=== PATIENT | female | born 1970 | race Caucasian/White ===

== ENCOUNTER 2017-04-23 17:03 | Emergency (ER) | payer OTHER ==
[~2017-04-23] VITALS: Ht 160 cm; Wt 78.0 kg
[~2017-04-23 17:03] MED LIST: LISINOPRIL10 MG PO; TEGRETOL200 MG PO; ZOVIRAX200 MG PO
--- OUTSIDE RECORDS SUMMARY | 2017-04-23 17:06 | XMS REPORT ---
[facility] Address Unknown Phone Unavailable Care Team Providers Care Statistician Applied Name Role Phone UNKNOWN, REFFERING PP Unavailable EYAL MENJIVAR Unavailable Unavailable ROOT, RAND Unavailable Unavailable NRIAGU, ALBERTO Unavailable Unavailable Problems This patient has no known problems. Allergies, Adverse Reactions, Alerts This patient has no known allergies or adverse reactions. Medications This patient has no known medications. Encounters Start Date/Time End Date/Time Encounter Type Admission Type Attending [facility] Care Department Encounter ID 2016-10-22 08:56:25 Inpatient [facility] [id number] 2016-10-20 16:18:52 Inpatient [facility] [id number] 2017-01-09 07:15:00 2017-01-09 07:15:00 Emergency [facility] [id number] 2016-11-10 00:00:00 2016-11-10 00:00:00 Outpatient [facility] [id number] 2016-10-23 13:18:27 2016-10-23 00:00:00 Inpatient [facility] [id number] 2016-10-22 00:10:05 2016-10-22 00:00:00 Inpatient [facility] [id number] 2016-10-21 00:04:31 2016-10-21 00:00:00 Inpatient [facility] [id number] 2016-10-20 02:11:00 2016-10-20 00:00:00 Inpatient [facility] [id number] 2016-10-19 15:50:32 2016-10-19 15:50:32 Emergency [facility] [id number] 2016-10-19 15:37:29 2016-10-19 15:37:29 Emergency [facility] [id number] 2016-10-19 15:24:23 2016-10-19 15:24:23 Emergency [facility] [id number] 2016-10-19 14:17:16 2016-10-19 14:17:16 Inpatient [facility] [id number] 2016-10-19 22:24:38 2016-10-19 00:00:00 Inpatient [facility] [id number] 2016-09-14 00:38:48 2016-09-14 00:38:48 Emergency [facility] [id number] 2016-09-11 06:59:14 2016-09-11 06:59:14 Emergency [facility] [id number] 2016-09-10 16:35:00 2016-09-10 16:35:00 Emergency [facility] [id number] Results Test Description Test Time Test Comments Text Results Atomic Results Result Comments [id number] 2016-12-22 20:28:00 Amphetamine (test code=AMPH) POSITIVE Negative For diagnostic purposes only , positive results should always be assessedin conjunctionwith the patient's medical history,clinical examination and otherfindings.To fulfill legal requirements, a more specific alternate chemical methodmust be used inorder to obtain a Confirmed analytical result. GC/MS is the preferred confirmatory method. Barbiturates (test code=SHANNON) Negative Negative Benzodiazepine (test code=PHILLIP) Negative Negative Cocaine (test code=COCA) Negative Negative Opiates (test code=OPIA) Negative Negative PCP (test code=PCP) Negative Negative THC (test code=THC) Negative Negative Urinalysis [id number] 20:06:00* Test Item Value Reference Range Comments Color (test code=COLOR) Straw Yellow,Straw,Pl yellow Clarity (test code=CLAR) Clear Clear Specific [place] (test code=SPGR) 1.004 1.001-1.035 pH (test code=PH) 5.0 5.0-9.0 Ketone (test code=KET) Negative mg/dL Negative Glucose (test code=GLUCUR) Negative mg/dL Negative Protein (test code=PROT) Negative mg/dL Negative Bilirubin (test code=BILI) Negative mg/dL Negative Occult Blood (test code=UDOB) Negative Negative Urobilinogen (test code=UROB) 0.2 mg/dL 0.2-1.0 Nitrite (test code=NIT) Negative Negative Leuk Esterase (test code=LEUK) Negative Negative Micros Exam (test code=MEXAM) Not indicated Partial Thromboplastin [id number] 18:29:00* Test Item Value Reference Range Comments aPTT (test code=PTT) 30.70 seconds 24.39-37.25 Prothrombin [id number] 18:29:00* Test Item Value Reference Range Comments PT (test code=PT) 11.50 seconds 9.78-13.35 INR (test code=INR) 1.02 Ratio 0.6-1.2 Comprehensive Metabolic [id number] 18:26:00* Test Item Value Reference Range Comments Sodium (test code=NA) 137 mmol/L 135-145 Potassium (test code=K) 3.9 mmol/L 3.5-5.1 Chloride (test code=CL) 100 mmol/L 98-105 Carbon Dioxide (test code=CO2) 27 mmol/L 22-29 Glucose (test code=GLU) 75 mg/dL 70-115 Blood Urea Nitrogen (test code=BUN) 8 mg/dL 6-20 Creatinine (test code=CREAT) 0.9 mg/dL 0.5-0.9 Calcium (test code=CA) 9.7 mg/dL 8.3-10.5 Prot Total (test code=TP) 7.2 g/dL 6.4-8.3 Albumin (test code=ALB) 4.6 g/dL 3.5-5.2 A/G Ratio (test code=AGRATIO) 1.8 Ratio Globulin (test code=GLOB) 2.6 2.9-3.1 Bili Total (test code=TBIL) 0.6 mg/dL 0.1-0.9 Alk Phos (test code=APHOS) 71 U/L 35-104 AST (test code=AST) 12 U/L 1-32 ALT (test code=ALT) 10 U/L 1-33 BUN/Creatinine Ratio (test code=BCRATIO) 8.9 Anion Gap (test code=AGAP) 10 mmol/L 7-16 Estimated GFR (test code=GFR) >60 mL/min/1.73m2 eGFR (estimated Glomerular Filtration Rate) is an estimated value,calculated from the patient's serum creatinine using the MDRD equation.It is NOT the patient's actual GFR. The eGFR provides a more clinicallyuseful measure of kidney disease than serum creatinine alone.This calculation takes sex and race into account, if the informationis provided. If the race is not provided, and the patient isAfrican- Citizen Of [place], multiply by 1.212. If sex is not provided, and thepatient is female, multiply by 0.742. Results for patients <18 years ofage have not been validated by the MDRD study and should be interpretedwith caution.eGFR Result Interpretation:eGFR > or=60 is in the Normal RangeeGFR < 60 may mean kidney diseaseeGFR < 15 may mean kidney failureRanges recommended by the National Kidney Foundation,http://nkdep.nih.gov CBC with [id number] 18:07:00* Test Item Value Reference Range Comments WBC (test code=WBC) 6.1 K/cumm 4.4-10.5 RBC (test code=RBC) 4.11 M/cumm 3.75-5.20 Hemoglobin (test code=HGB) 12.5 gm/dL 12.2-14.8 Hematocrit (test code=HCT) 38.4 % 36.5-44.4 MCV (test code=MCV) 93.3 fL 80-100 MCH (test code=MCH) 30.4 pg 27.0-32.5 MCHC (test code=MCHC) 32.5 g/dL 32.0-37.5 RDW (test code=RDW) 12.8 % 11.5-14.5 Platelet Count (test code=PLTCT) 285 K/cumm 140-440 MPV (test code=MPV) 7.3 fL Diff Method (test code=DIFFM) Auto Neutrophil (test code=NEUT) 57.7 % 36-70 Lymphocyte (test code=LYMPH) 33.1 % 12-44 Monocyte (test code=MONO) 7.6 % 0-11 Eosinophil (test code=EOS) 1.5 % 0-7 Basophil (test code=BASO) 0.1 % 0-2 Neutro Abs (test code=ANEUT) 3.5 K/cumm 1.6-7.4 Lymph Abs (test code=ALYMPH) 2.0 K/cumm 0.5-4.6 [place] Abs (test code=AMONO) 0.5 K/cumm 0.0-1.2 Eos Abs (test code=AEOS) 0.09 K/cumm 0.00-0.74 Baso Abs (test code=ABASO) 0.0 K/cumm 0.00-0.21 XR CHEST 1 [id number] 17:14:51CHEST 1 VIEWCLINICAL INFORMATION: DyspneaCOMPARISON: September 10, 2016FINDINGS:The lungs are well-expanded and clear. No airspace consolidation isseen. No pneumothorax or pleural effusion is present. The cardiacsilhouette is normal in size. The bones are grossly intact.IMPRESSION:No acute cardiopulmonary finding.LOCATION: R16CT HEAD OR BRAIN WO [id number] 17:10:16CT SCAN OF THE HEAD WITHOUT CONTRASTLocation : [id number] HISTORY: Altered mental statusTECHNIQUE: Helical CT was performed from the skull base to the vertexwithout IV contrast using 5mm slice thicknesses. Coronal and sagittalimages were reconstructed. Exam was performed on an up-to-date helicalCT scanner. Automatic exposure control and radiation dose reductiontechniques were utilized. Exam was performed within 24 hours of thepatient's arrival to the facility. Exam performed without IV contrasthas limited sensitivity for detection of mass or inflammatory change.DLP: 955 mGy *cmFINDINGS:The visualized sinuses are clear. The visualized bony structures arenormal. There is no evidence of mass, mass effect, fluid collection, hemorrhage, or evolving infarction. There is no evidence of epidural,subdural, or intraparenchymal hematoma. There is mild patchy hypodensityin the deep white matter consistent with mild microvascular white matterchange.IMPRESSION:No acute finding demonstrated. Mild microvascular white matter change.XR FOREARM 2V.-[id number] 22:35:38Dictation location C14Laga forearm 3 viewsHISTORY: Swelling.COMMENT: No comparison. A metallic plate an multiple screws overlie thedistal radius. There is no acute fracture or dislocation. Surroundingbones and soft tissues are intactIMPRESSION: No acute bony or soft tissue abnormality.RPR, [id number] 06:26:00* Test Item Value Reference Range Comments RPR (test code=RPR) Non-Reactive Non-Reactive Thyroid Stimulating Hormone (TSH)2016-10-27 21:18:00* Test Item Value Reference Range Comments TSH (test code=TSH) 3.23 mIU/mL 0.270-4.200 BHCG, Serum, [id number] 20:34:00* Test Item Value Reference Range Comments Preg Qual [Se] (test code=BSHCG) Negative Negative [id number] 09:49:00* Test Item Value Reference Range Comments Amphetamine (test code=AMPH) Negative Negative For diagnostic purposes only , positive results should always be assessedin conjunctionwith the patient's medical history,clinical examination and otherfindings.To fulfill legal requirements, a more specific alternate chemical methodmust be used inorder to obtain a Confirmed analytical result. GC/MS is the preferred confirmatory method. Barbiturates (test code=SHANNON) Negative Negative Benzodiazepine (test code=PHILLIP) Negative Negative Cocaine (test code=COCA) Negative Negative Methadone (test code=MTHD) Negative Negative Opiates (test code=OPIA) Negative Negative PCP (test code=PCP) Negative Negative Propoxyphene (test code=PROPOX) Negative Negative THC (test code=THC) Negative Negative Alcohol, Urine (test code=ETOHU) <0.01 g/dL 0.00-0.01 Comprehensive Metabolic [id number] 09:49:00* Test Item Value Reference Range Comments Sodium (test code=NA) 138 mmol/L 135-145 Potassium (test code=K) 4.2 mmol/L 3.5-5.1 Chloride (test code=CL) 102 mmol/L 98-105 Carbon Dioxide (test code=CO2) 26 mmol/L 22-29 Glucose (test code=GLU) 100 mg/dL 70-115 Blood Urea Nitrogen (test code=BUN) 13 mg/dL 6-20 Creatinine (test code=CREAT) 0.7 mg/dL 0.5-0.9 Calcium (test code=CA) 9.2 mg/dL 8.3-10.5 Prot Total (test code=TP) 6.7 g/dL 6.4-8.3 Albumin (test code=ALB) 3.8 g/dL 3.5-5.2 A/G Ratio (test code=AGRATIO) 1.3 Ratio Globulin (test code=GLOB) 2.9 2.9-3.1 Bili Total (test code=TBIL) 0.2 mg/dL 0.1-0.9 Alk Phos (test code=APHOS) 89 U/L 35-104 AST (test code=AST) 29 U/L 1-32 ALT (test code=ALT) 35 U/L 1-33 BUN/Creatinine Ratio (test code=BCRATIO) 18.6 Anion Gap (test code=AGAP) 10 mmol/L 7-16 Estimated GFR (test code=GFR) >60 mL/min/1.73m2 eGFR (estimated Glomerular Filtration Rate) is an estimated value,calculated from the patient's serum creatinine using the MDRD equation.It is NOT the patient's actual GFR. The eGFR provides a more clinicallyuseful measure of kidney disease than serum creatinine alone.This calculation takes sex and race into account, if the informationis provided. If the race is not provided, and the patient isAfrican- Citizen [place], multiply by 1.212. If sex is not provided, and thepatient is female, multiply by 0.742. Results for patients <18 years ofage have not been validated by the MDRD study and should be interpretedwith caution.eGFR Result Interpretation:eGFR > or=60 is in the Normal RangeeGFR < 60 may mean kidney diseaseeGFR < 15 may mean kidney failureRanges recommended by the National Kidney Foundation,http://nkdep.nih.gov CBC with [id number] 09:39:00* Test Item Value Reference Range Comments WBC (test code=WBC) 9.8 K/cumm 4.4-10.5 RBC (test code=RBC) 3.89 M/cumm 3.75-5.20 Hemoglobin (test code=HGB) 11.8 gm/dL 12.2-14.8 Hematocrit (test code=HCT) 37.1 % 36.5-44.4 MCV (test code=MCV) 95.4 fL 80-100 MCH (test code=MCH) 30.4 pg 27.0-32.5 MCHC (test code=MCHC) 31.9 g/dL 32.0-37.5 RDW (test code=RDW) 14.8 % 11.5-14.5 Platelet Count (test code=PLTCT) 325 K/cumm 140-440 MPV (test code=MPV) 7.7 fL Diff Method (test code=DIFFM) Auto Neutrophil (test code=NEUT) 63.1 % 36-70 Lymphocyte (test code=LYMPH) 26.5 % 12-44 Monocyte (test code=MONO) 5.4 % 0-11 Eosinophil (test code=EOS) 4.3 % 0-7 Basophil (test code=BASO) 0.7 % 0-2 Neutro Abs (test code=ANEUT) 6.2 K/cumm 1.6-7.4 Lymph Abs (test code=ALYMPH) 2.6 K/cumm 0.5-4.6 [place] Abs (test code=AMONO) 0.5 K/cumm 0.0-1.2 Eos Abs (test code=AEOS) 0.42 K/cumm 0.00-0.74 Baso Abs (test code=ABASO) 0.1 K/cumm 0.00-0.21 Urinalysis [id number] 09:35:00* Test Item Value Reference Range Comments Color (test code=COLOR) Yellow Yellow,Straw,Pl yellow Clarity (test code=CLAR) Clear Clear Specific [place] (test code=SPGR) 1.009 1.001-1.035 pH (test code=PH) 5.0 5.0-9.0 Ketone (test code=KET) Negative mg/dL Negative Glucose (test code=GLUCUR) Negative mg/dL Negative Protein (test code=PROT) Negative mg/dL Negative Bilirubin (test code=BILI) Negative mg/dL Negative Occult Blood (test code=UDOB) Small Negative Urobilinogen (test code=UROB) 0.2 mg/dL 0.2-1.0 Nitrite (test code=NIT) Negative Negative Leuk Esterase (test code=LEUK) Small Negative Micros Exam (test code=MEXAM) Indicated Epithelial Cells (test code=EPI) 3-5 /LPF 0-30 WBC, Urine (test code=UWBC) 0-5 /HPF 0-5 RBC, Urine (test code=URBC) None Seen /HPF 0-5 Bacteria (test code=BACT) Few /HPF [id number] 09:14:00* Test Item Value Reference Range Comments Amphetamine (test code=AMPH) POSITIVE Negative For diagnostic purposes only , positive results should always be assessedin conjunctionwith the patient's medical history,clinical examination and otherfindings.To fulfill legal requirements, a more specific alternate chemical methodmust be used inorder to obtain a Confirmed analytical result. GC/MS is the preferred confirmatory method. Barbiturates (test code=SHANNON) Negative Negative Benzodiazepine (test code=PHILLIP) POSITIVE Negative Cocaine (test code=COCA) Negative Negative Methadone (test code=MTHD) Negative Negative Opiates (test code=OPIA) Negative Negative PCP (test code=PCP) Negative Negative Propoxyphene (test code=PROPOX) Negative Negative THC (test code=THC) Negative Negative Alcohol, Urine (test code=ETOHU) <0.01 g/dL 0.00-0.01 CBC with [id number] 08:44:00* Test Item Value Reference Range Comments WBC (test code=WBC) 6.8 K/cumm 4.4-10.5 RBC (test code=RBC) 4.13 M/cumm 3.75-5.20 Hemoglobin (test code=HGB) 12.4 gm/dL 12.2-14.8 Hematocrit (test code=HCT) 38.0 % 36.5-44.4 MCV (test code=MCV) 91.8 fL 80-100 MCH (test code=MCH) 30.0 pg 27.0-32.5 MCHC (test code=MCHC) 32.6 g/dL 32.0-37.5 RDW (test code=RDW) 13.7 % 11.5-14.5 Platelet Count (test code=PLTCT) 259 K/cumm 140-440 MPV (test code=MPV) 7.6 fL Diff Method (test code=DIFFM) Auto Neutrophil (test code=NEUT) 58.0 % 36-70 Lymphocyte (test code=LYMPH) 29.8 % 12-44 Monocyte (test code=MONO) 9.6 % 0-11 Eosinophil (test code=EOS) 2.2 % 0-7 Basophil (test code=BASO) 0.3 % 0-2 Neutro Abs (test code=ANEUT) 3.9 K/cumm 1.6-7.4 Lymph Abs (test code=ALYMPH) 2.0 K/cumm 0.5-4.6 [place] Abs (test code=AMONO) 0.7 K/cumm 0.0-1.2 Eos Abs (test code=AEOS) 0.15 K/cumm 0.00-0.74 Baso Abs (test code=ABASO) 0.0 K/cumm 0.00-0.21 Comprehensive Metabolic [id number] 08:42:00* Test Item Value Reference Range Comments Sodium (test code=NA) 138 mmol/L 135-145 Potassium (test code=K) 3.6 mmol/L 3.5-5.1 Chloride (test code=CL) 101 mmol/L 98-105 Carbon Dioxide (test code=CO2) 27 mmol/L 22-29 Glucose (test code=GLU) 79 mg/dL 70-115 Blood Urea Nitrogen (test code=BUN) 7 mg/dL 6-20 Creatinine (test code=CREAT) 0.9 mg/dL 0.5-0.9 Calcium (test code=CA) 9.0 mg/dL 8.3-10.5 Prot Total (test code=TP) 6.4 g/dL 6.4-8.3 Albumin (test code=ALB) 4.0 g/dL 3.5-5.2 A/G Ratio (test code=AGRATIO) 1.7 Ratio Globulin (test code=GLOB) 2.4 2.9-3.1 Bili Total (test code=TBIL) 0.4 mg/dL 0.1-0.9 Alk Phos (test code=APHOS) 69 U/L 35-104 AST (test code=AST) 18 U/L 1-32 ALT (test code=ALT) 16 U/L 1-33 BUN/Creatinine Ratio (test code=BCRATIO) 7.8 Anion Gap (test code=AGAP) 10 mmol/L 7-16 Estimated GFR (test code=GFR) >60 mL/min/1.73m2 eGFR (estimated Glomerular Filtration Rate) is an estimated value,calculated from the patient's serum creatinine using the MDRD equation.It is NOT the patient's actual GFR. The eGFR provides a more clinicallyuseful measure of kidney disease than serum creatinine alone.This calculation takes sex and race into account, if the informationis provided. If the race is not provided, and the patient isAfrican- Citizen [place], multiply by 1.212. If sex is not provided, and thepatient is female, multiply by 0.742. Results for patients <18 years ofage have not been validated by the MDRD study and should be interpretedwith caution.eGFR Result Interpretation:eGFR > or=60 is in the Normal RangeeGFR < 60 may mean kidney diseaseeGFR < 15 may mean kidney failureRanges recommended by the National Kidney Foundation,http://nkdep.nih.gov BHCG, Urine, [id number] 08:37:00* Test Item Value Reference Range Comments Preg Qual [Ur] (test code=HUHCG) Negative Negative
[2017-04-23] MEDS ORDERED: PANTOPRAZOLE 40 MG 10ML VIAL IV STA (18:31)
[2017-04-23] MEDS ORDERED: SODIUM CHLORIDE 0.9% 1000ML 1,000 ML IV STA ×2 (18:31)
[2017-04-23] MEDS ORDERED: MORPHINE SULFATE 2 MG/ML SYR IV PRN (18:45)
[2017-04-23] MEDS ORDERED: ONDANSETRON HCL INJ 2 MG/ML VIAL IV PRN (18:45)
[2017-04-23] MEDS ORDERED: SODIUM CHLORIDE 0.9% 1000ML 1,000 ML IV SCH (18:45)
[2017-04-23 18:55] LABS: BILIRUBIN,URINE NEGATIVE (NEGATIVE); CLARITY,URINE CLEAR (CLEAR); COLOR,URINE YELLOW (YELLOW); KETONES,URINE NEGATIVE (NEGATIVE); LEUKOCYTE ESTERASE ,URINE NEGATIVE (NEGATIVE); NITRITE,URINE NEGATIVE (NEGATIVE); PROTEIN,URINE DIPSTICK NEGATIVE (NEGATIVE); URINE UROBILINOGEN 0.2 mg/dL (0.2 - 1)
[2017-04-23 18:56] LABS: AMPHETAMINES SCREEN,URINE POSITIVE (NEGATIVE); BENZODIAZEPINES SCREEN,URINE NEGATIVE (NEGATIVE); PHENCYCLIDINE SCREEN,URINE NEGATIVE (NEGATIVE)
[2017-04-23 19:14] LABS: EPITHELIAL CELLS,URINE MODERATE /LPF
[2017-04-23 19:25] LABS: BASOPHILS % 0.3 % (0.0-1.0); EOSINOPHILS # (AUTO) 0.1 (0.0-0.4); EOSINOPHILS % 1.1 % (0.0-6.0); HEMATOCRIT 40.2 % (34.2-44.1); HEMOGLOBIN 13.1 g/dL (12.0-16.0); LYMPHOCYTES % 30.2 % (18.0-39.1); MEAN CORPUSCULAR HEMOGLOBIN 30.5 pg (28-32); MEAN CORPUSCULAR HGB CONC 32.6 g/dL (31-35); MEAN CORPUSCULAR VOLUME 93.7 fL (81-99); MONOCYTES # (AUTO) 0.5 (0.2-0.8); MONOCYTES % 7.1 % (4.4-11.3); PLATELET COUNT 288 x10e3/uL (140-360); RED BLOOD COUNT 4.29 x10e6/uL (3.6-5.1); RED CELL DISTRIBUTION WIDTH 12.9 % (11.7-14.4)
[2017-04-23] MEDS ORDERED: PANTOPRAZOLE 40 MG 10ML VIAL IV SCH (19:30)
[2017-04-23 19:35] LABS: INR 0.95; PROTHROMBIN TIME 11.9 seconds (11.9-14.5)
[2017-04-23 19:36] LABS: PARTIAL THROMBOPLASTIN TIME 25.1 seconds (23.8-35.5)
[2017-04-23 19:47] LABS: ALANINE AMINOTRANSFERASE 11 IU/L (0-55); ALBUMIN 3.8 g/dL (3.5-5.0); ALBUMIN/GLOBULIN RATIO 1.1 (0.8-2.0); ALKALINE PHOSPHATASE 71 IU/L (40-150); ANION GAP 12.2 mmol/L (8-16); BLOOD UREA NITROGEN 7 mg/dL (7-26); BUN/CREATININE RATIO 8 (6-25); CALCIUM 8.9 mg/dL (8.4-10.2); CARBON DIOXIDE 29 mmol/L (22-29); CHLORIDE 103 mmol/L (98-107); CREATININE, SERUM 0.85 mg/dL (0.57-1.11); EST GLOMERULAR FILTRATION RATE > 60 ML/MIN (60-); GLUCOSE 91 mg/dL (74-118); LIPASE 17 U/L (8-78); POTASSIUM 3.2 mmol/L (3.5-5.1); SODIUM 141 mmol/L (136-145)
[2017-04-23 19:51] LABS: ACETAMINOPHEN < 3 ug/mL (10-30); SALICYLATE < 5.0 mg/dL (0-30)
[2017-04-23 20:06] LABS: CREATINE KINASE 62 IU/L (29-168)
[2017-04-23 20:09] LABS: THYROID STIMULATING HORMONE 2.465 uIU/mL (0.350-4.940)
[2017-04-23] MEDS ORDERED: KCL 20MEQ/.9 SOD CHL 1,000 ML IV ONE (20:15)
--- NOTE | 2017-04-23 21:44 | Diagnostic Imaging Report ---
EXAMINATION: CHEST SINGLE (PORTABLE) INDICATION: Rectal bleeding, nausea COMPARISON: None FINDINGS: TUBES and LINES: None. LUNGS: Lungs are well inflated. Minimal left lung base atelectasis There is no evidence of pneumonia or pulmonary edema. PLEURA: No pleural effusion or pneumothorax. HEART AND MEDIASTINUM: The cardiomediastinal silhouette is unremarkable. BONES AND SOFT TISSUES: No acute osseous lesion. Soft tissues are unremarkable. UPPER ABDOMEN: No free air under the diaphragm. IMPRESSION: No acute thoracic abnormality. Signed by: Dr. Jak Baxter M.D. on 04/23/2017 9:40 PM
--- NOTE | 2017-04-23 21:56 | Diagnostic Imaging Report ---
EXAM: CT Abdomen and Pelvis WITH contrast INDICATION: Abdominal pain. COMPARISON: None. TECHNIQUE: Abdomen and pelvis were scanned utilizing a multidetector helical scanner from the lung base to the pubic symphysis after administration of IV contrast. Coronal and sagittal reformations were obtained. Routine protocol was performed. Scan was performed when during portal venous phase. IV CONTRAST: 100 mL of Isovue-370 ORAL CONTRAST: Water RADIATION DOSE: Total DLP: 353.75 mGy*cm Estimated effective dose: (DLP x 0.015 x size factor) mSv COMPLICATIONS: None FINDINGS: LINES and TUBES: None. LOWER THORAX: Unremarkable HEPATOBILIARY: No focal hepatic lesions. No biliary ductal dilation. GALLBLADDER: Gallbladder is decompressed. SPLEEN: No splenomegaly. PANCREAS: No focal masses or ductal dilatation. ADRENALS: No adrenal nodules KIDNEYS/URETERS: Kidneys enhance symmetrically. No hydronephrosis. No cystic or solid mass lesions. No stones. GI TRACT: No abnormal distention, wall thickening, or evidence of bowel obstruction. There are few diverticula within the sigmoid colon without evidence of diverticulitis. Appendix is normal. PELVIC ORGANS/BLADDER: Unremarkable. LYMPH NODES: No lymphadenopathy. However, there is a small left gastric lymph nodes are noted on series 2, image 16 measuring 8 mm in short axis VESSELS: Unremarkable. PERITONEUM / RETROPERITONEUM: No free air or fluid. BONES: There are degenerative changes in the lower thoracic spine. SOFT TISSUES: Unremarkable. IMPRESSION: 1. No acute intra-abdominal or pelvic abnormality. Signed by: Dr. Jak Baxter M.D. on 04/23/2017 9:53 PM
[2017-04-23] MEDS ORDERED: IOPAMIDOL 370 MG/ML 200 ML INFUS..BTL INJ ONE (22:50)
[2017-04-23] MEDS ORDERED: SODIUM CHLORIDE 0.9% 50ML 50 ML ONE (22:50)
== END 2017-04-23 22:07 | disposition left against medical advice (07) ==
LOC: ER 17:03 → ERHOLD 18:45 → UNDOADMOB 18:45 → CANBEDREQ 22:31
DX: R10.30 Lower abdominal pain, unspecified (principal); R11.2 Nausea with vomiting, unspecified; E87.6 Hypokalemia
CPT/HCPCS: 36415; 71045; 74177; 80053; 80307; 80320; 80329 ×2; 81001; 81025; 82550; 82553; 83690; 84443; 84484; 85025; 85610; 85730; 87086; 93005; 99284; Q9967

== ENCOUNTER 2018-10-14 19:10 | Emergency (ER) | payer OTHER ==
[~2018-10-14] VITALS: Ht 160 cm; Wt 78.0 kg
[2018-10-14 20:22] LABS: BILIRUBIN,URINE NEGATIVE (NEGATIVE); CLARITY,URINE SL CLOUDY (CLEAR); COLOR,URINE YELLOW (YELLOW); KETONES,URINE NEGATIVE (NEGATIVE); LEUKOCYTE ESTERASE ,URINE NEGATIVE (NEGATIVE); NITRITE,URINE NEGATIVE (NEGATIVE); PROTEIN,URINE DIPSTICK NEGATIVE (NEGATIVE); URINE UROBILINOGEN 0.2 mg/dL (0.2 - 1)
[2018-10-14 20:30] LABS: AMPHETAMINES SCREEN,URINE POSITIVE (NEGATIVE); PHENCYCLIDINE SCREEN,URINE NEGATIVE (NEGATIVE)
[2018-10-14 20:31] LABS: BENZODIAZEPINES SCREEN,URINE POSITIVE (NEGATIVE)
[2018-10-14 20:36] LABS: BACTERIA,URINE FEW /HPF; EPITHELIAL CELLS,URINE FEW /LPF; RBC,URINE 0-5 /HPF (0-5)
--- NOTE | 2018-10-14 21:57 | Diagnostic Imaging Report ---
EXAMINATION: PA and lateral views of the chest. COMPARISON: Chest single view 04/23/2017 CLINICAL HISTORY: Shortness of breath DISCUSSION: Lines/tubes: None. Lungs: The lungs are well inflated and clear. There is no evidence of pneumonia or pulmonary edema. Pleura: There is no pleural effusion or pneumothorax. Heart and mediastinum: The cardiomediastinal silhouette is normal. Bones and soft tissues: No acute bony abnormalities. IMPRESSION: No acute cardiopulmonary abnormalities. Signed by: Dr. Prakash Zapata M.D. on 10/14/2018 9:53 PM
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
[2018-10-15 00:34] VITALS: BP 172/79
== END 2018-10-15 00:39 | disposition home or self-care (01) ==
LOC: ER 19:10
DX: R20.0 Anesthesia of skin (principal); M54.5 Low back pain; M25.551 Pain in right hip; M25.562 Pain in left knee; M25.561 Pain in right knee; R25.2 Cramp and spasm; V03.90XA Pedestrian on foot injured in collision with car, pick-up truck or van, unspecified whether traffic or nontraffic accident, initial encounter; Y92.008 Other place in unspecified non-institutional (private) residence as the place of occurrence of the external cause
CPT/HCPCS: 71046; 72100; 80307; 81001; 81025; 99283

== ENCOUNTER 2021-03-12 20:56 | Observation (INO) | payer OTHER ==
[~2021-03-12] VITALS: Ht 160 cm; Wt 86.7 kg
[2021-03-12] MEDS ORDERED: SODIUM CHLORIDE 0.9% 1000ML 1,000 ML IV STA (21:08)
[2021-03-12 21:40] LABS: BASOPHILS % 0.1 % (0.0-1.0); EOSINOPHILS # (AUTO) 0.2 (0.0-0.4); EOSINOPHILS % 1.9 % (0.0-6.0); HEMATOCRIT 41.8 % (34.2-44.1); HEMOGLOBIN 13.3 g/dL (12.0-16.0); LYMPHOCYTES # (AUTO) 2.4 (1.0-3.2); LYMPHOCYTES % 29.7 % (18.0-39.1); MEAN CORPUSCULAR HEMOGLOBIN 30.6 pg (28-32); MEAN CORPUSCULAR HGB CONC 31.8 g/dL (31-35); MEAN CORPUSCULAR VOLUME 96.3 fL (81-99); MONOCYTES # (AUTO) 0.6 (0.2-0.8); MONOCYTES % 7.3 % (4.4-11.3); NEUTROPHILS # (AUTO) 4.8 (2.1-6.9); NEUTROPHILS % 60.7 % (38.7-80.0); PLATELET COUNT 304 x10e3/uL (140-360); RED BLOOD COUNT 4.34 x10e6/uL (3.6-5.1); RED CELL DISTRIBUTION WIDTH 13.2 % (11.7-14.4)
[2021-03-12 21:58] LABS: ALBUMIN 4.1 g/dL (3.5-5.0); ALBUMIN/GLOBULIN RATIO 1.2 (0.8-2.0); ANION GAP 13.3 mmol/L (8-16); CALCIUM 9.7 mg/dL (8.4-10.2); CREATININE, SERUM 0.87 mg/dL (0.57-1.11); POTASSIUM 3.3 mmol/L (3.5-5.1)
[2021-03-12 22:10] LABS: CREATINE KINASE MB 1.2 ng/mL (0-5.0)
[2021-03-12 23:30] LABS: AMPHETAMINES SCREEN,URINE POSITIVE (NEGATIVE); BENZODIAZEPINES SCREEN,URINE NEGATIVE (NEGATIVE); CLARITY,URINE CLEAR (CLEAR); COLOR,URINE STRAW (YELLOW); KETONES,URINE NEGATIVE (NEGATIVE); LEUKOCYTE ESTERASE ,URINE NEGATIVE (NEGATIVE); NITRITE,URINE NEGATIVE (NEGATIVE); PHENCYCLIDINE SCREEN,URINE NEGATIVE (NEGATIVE); PROTEIN,URINE DIPSTICK NEGATIVE (NEGATIVE); URINE UROBILINOGEN 0.2 mg/dL (0.2 - 1)
[2021-03-12 23:33] LABS: BACTERIA,URINE RARE /HPF; EPITHELIAL CELLS,URINE FEW /LPF; RBC,URINE 0-5 /HPF (0-5); WBC,URINE (MAN) 0-5 /HPF (0-5)
[2021-03-12] MEDS ORDERED: ONDANSETRON ODT4 MG PO (23:45)
[2021-03-12] MEDS ORDERED: PEPCID AC10 MG PO (23:45)
[2021-03-13] VITALS (8 sets, daily range): BP systolic 82–163; BP diastolic 44–97
[2021-03-13] MEDS: SODIUM CHLORIDE 0.9% 1000ML 1,000 ML IV SCH ×3 (00:52→17:29)
[2021-03-13] MEDS: ONDANSETRON HCL INJ 2MG/ML 2ML 2 MG/ML VIAL IV PRN ×2 (01:35→05:30)
[2021-03-13] MEDS: Morphine 4mg Syringe 4 MG/ML INJ IV PRN ×2 (01:35→05:30)
[2021-03-13] MEDS ORDERED: FAMOTIDINE20 MG PO (02:01)
[2021-03-13] MEDS ORDERED: LISINOPRIL20 MG PO (02:01)
[2021-03-13] MEDS ORDERED: CLONAZEPAM0.5 MG PO (02:01)
[2021-03-13] MEDS ORDERED: FLUOXETINE HCL40 MG PO (02:01)
[2021-03-13] MEDS ORDERED: ARIPIPRAZOLE30 MG PO (02:01)
[2021-03-13] MEDS ORDERED: DEXTROAMP-AMPHE20 M1 PO (02:01)
[2021-03-13] MEDS ORDERED: LEVOTHYROXINE25 MCG PO (02:01)
[2021-03-13] MEDS ORDERED: TRAZODONE HCL100 MG PO (02:01)
[2021-03-13] MEDS ORDERED: ATORVASTATIN CA40 MG PO (02:01)
[2021-03-13 06:57] LABS: BASOPHILS % 0.1 % (0.0-1.0); EOSINOPHILS # (AUTO) 0.3 (0.0-0.4); EOSINOPHILS % 3.5 % (0.0-6.0); HEMATOCRIT 41.7 % (34.2-44.1); HEMOGLOBIN 13.5 g/dL (12.0-16.0); LYMPHOCYTES # (AUTO) 3.4 (1.0-3.2); LYMPHOCYTES % 44.2 % (18.0-39.1); MEAN CORPUSCULAR HEMOGLOBIN 31.2 pg (28-32); MEAN CORPUSCULAR HGB CONC 32.4 g/dL (31-35); MEAN CORPUSCULAR VOLUME 96.3 fL (81-99); MONOCYTES # (AUTO) 0.6 (0.2-0.8); MONOCYTES % 7.9 % (4.4-11.3); NEUTROPHILS # (AUTO) 3.4 (2.1-6.9); PLATELET COUNT 296 x10e3/uL (140-360); RED BLOOD COUNT 4.33 x10e6/uL (3.6-5.1); RED CELL DISTRIBUTION WIDTH 13.2 % (11.7-14.4)
[2021-03-13 07:23] LABS: ALBUMIN 3.6 g/dL (3.5-5.0); ALBUMIN/GLOBULIN RATIO 1.1 (0.8-2.0); ANION GAP 13.8 mmol/L (8-16); CALCIUM 8.8 mg/dL (8.4-10.2); CREATININE, SERUM 0.75 mg/dL (0.57-1.11); POTASSIUM 3.8 mmol/L (3.5-5.1)
[2021-03-13 07:44] LABS: CREATINE KINASE MB 1.7 ng/mL (0-5.0)
[2021-03-13] MEDS ORDERED: ACETAMINOPHEN 325 MG TAB PO PRN (12:45)
[2021-03-13 16:59] LABS: CREATINE KINASE MB 1.7 ng/mL (0-5.0)
[2021-03-14] VITALS (8 sets, daily range): BP systolic 83–130; BP diastolic 49–71
[2021-03-14] MEDS: SODIUM CHLORIDE 0.9% 1000ML 1,000 ML IV SCH ×3 (02:46→17:17)
[2021-03-14] MEDS ORDERED: ACETAMIN/BUTALBITAL/CAFFEINE TAB PO PRN (10:15)
[2021-03-14] MEDS ORDERED: PROPOFOL IV EMULSION 10 MG/ML 20 ML VIAL ONE (12:40)
[2021-03-14] MEDS ORDERED: POVIDONE IODINE 0.05% 0.05 % ML PO ONE (12:40)
[2021-03-14] MEDS ORDERED: MIDAZOLAM HCL 2 MG/2 ML VIAL ONE (13:04)
[2021-03-14] MEDS ORDERED: LORAZEPAM 1 MG TAB PO PRN (16:00)
[2021-03-14] MEDS ORDERED: METOCLOPRAMIDE HCL 10 MG/2ML VIAL ONE (18:29)
[2021-03-14] MEDS: METOCLOPRAMIDE HCL 10 MG/2ML VIAL IV SCH (18:30)
[2021-03-14] MEDS: Pantoprazole IV 40 MG in SODIUM CHLORIDE 0.9% 50ML 50 ML IV SCH (21:42)
[2021-03-15] MEDS: SODIUM CHLORIDE 0.9% 1000ML 1,000 ML IV SCH ×2 (00:37→09:06)
[2021-03-15] MEDS: Pantoprazole IV 40 MG in SODIUM CHLORIDE 0.9% 50ML 50 ML IV SCH ×3 (00:37→09:06)
[2021-03-15] MEDS: METOCLOPRAMIDE HCL 10 MG/2ML VIAL IV SCH ×2 (00:37→05:06)
[2021-03-15 00:59] VITALS: BP 126/68
[2021-03-15 04:00] VITALS: BP 106/64
[2021-03-15 07:04] LABS: BASOPHILS % 0.3 % (0.0-1.0); EOSINOPHILS # (AUTO) 0.2 (0.0-0.4); EOSINOPHILS % 2.9 % (0.0-6.0); HEMOGLOBIN 11.5 g/dL (12.0-16.0); LYMPHOCYTES # (AUTO) 1.9 (1.0-3.2); LYMPHOCYTES % 26.4 % (18.0-39.1); MEAN CORPUSCULAR HEMOGLOBIN 30.5 pg (28-32); MEAN CORPUSCULAR HGB CONC 31.1 g/dL (31-35); MEAN CORPUSCULAR VOLUME 98.1 fL (81-99); MONOCYTES # (AUTO) 0.5 (0.2-0.8); MONOCYTES % 7.1 % (4.4-11.3); NEUTROPHILS # (AUTO) 4.6 (2.1-6.9); PLATELET COUNT 214 x10e3/uL (140-360); RED BLOOD COUNT 3.77 x10e6/uL (3.6-5.1); RED CELL DISTRIBUTION WIDTH 12.9 % (11.7-14.4)
[2021-03-15 07:35] LABS: ALBUMIN 3.1 g/dL (3.5-5.0); ALBUMIN/GLOBULIN RATIO 1.1 (0.8-2.0); ANION GAP 10.7 mmol/L (8-16); CALCIUM 8.8 mg/dL (8.4-10.2); CREATININE, SERUM 0.72 mg/dL (0.57-1.11); MAGNESIUM 1.9 MG/DL (1.3-2.1); POTASSIUM 3.7 mmol/L (3.5-5.1)
[2021-03-15 08:14] VITALS: BP 111/71
[2021-03-15 08:45] VITALS: BP 111/71
[2021-03-15 12:21] VITALS: BP 155/84
[2021-03-15] MEDS ORDERED: PANTOPRAZOLE SO40 MG PO (13:50)
== END 2021-03-15 14:22 | disposition home or self-care (01) ==
LOC: ER 21:04 → ERHOLD 23:53 → MED/SURG 03-13 01:20
PROVIDERS: ADMIT Internal Medicine; ATTEND Internal Medicine
DX: K22.10 Ulcer of esophagus without bleeding (principal); Z20.822 Contact with and (suspected) exposure to COVID-19; K29.70 Gastritis, unspecified, without bleeding; K44.9 Diaphragmatic hernia without obstruction or gangrene; K31.7 Polyp of stomach and duodenum
CPT/HCPCS: 36415 ×3; 43239; 43248; 70450; 71046; 74230; 80053 ×3; 80307; 81001; 82550 ×2; 82553 ×2; 83690; 83735; 84484 ×2; 85025 ×3; 85379; 88305; 88312; 92526; 92611; 93005; 93306; 94799; 99284; C9113 ×3; G0378 ×4; J2250; J2270; J2405; J2704; J2765 ×2; J7030 ×4; U0002; 43450

== ENCOUNTER 2021-07-12 19:36 | Emergency (ER) | payer OTHER ==
[~2021-07-12] VITALS: Ht 160 cm; Wt 86.6 kg
[~2021-07-12 19:36] MED LIST changes: +ARIPIPRAZOLE30 MG PO; +ATORVASTATIN CA40 MG PO; +CLONAZEPAM0.5 MG PO; +DEXTROAMP-AMPHE20 M1 PO; +FAMOTIDINE20 MG PO; +FLUOXETINE HCL40 MG PO; +LEVOTHYROXINE25 MCG PO; +LISINOPRIL20 MG PO; +ONDANSETRON ODT4 MG PO; +PANTOPRAZOLE SO40 MG PO; +PEPCID AC10 MG PO; +TRAZODONE HCL100 MG PO
[2021-07-12 20:08] LABS: BASOPHILS % 0.1 % (0.0-1.0); EOSINOPHILS # (AUTO) 0.1 (0.0-0.4); HEMATOCRIT 39.7 % (34.2-44.1); HEMOGLOBIN 12.6 g/dL (12.0-16.0); LYMPHOCYTES # (AUTO) 2.5 (1.0-3.2); MEAN CORPUSCULAR HEMOGLOBIN 31.3 pg (28-32); MEAN CORPUSCULAR HGB CONC 31.7 g/dL (31-35); MEAN CORPUSCULAR VOLUME 98.5 fL (81-99); MONOCYTES # (AUTO) 0.9 (0.2-0.8); MONOCYTES % 9.3 % (4.4-11.3); NEUTROPHILS # (AUTO) 5.7 (2.1-6.9); NEUTROPHILS % 62.3 % (38.7-80.0); PLATELET COUNT 300 x10e3/uL (140-360); RED BLOOD COUNT 4.03 x10e6/uL (3.6-5.1); RED CELL DISTRIBUTION WIDTH 13.3 % (11.7-14.4)
[2021-07-12 20:29] LABS: CLARITY,URINE CLEAR (CLEAR); COLOR,URINE YELLOW (YELLOW); KETONES,URINE NEGATIVE (NEGATIVE); LEUKOCYTE ESTERASE ,URINE NEGATIVE (NEGATIVE); NITRITE,URINE NEGATIVE (NEGATIVE); PROTEIN,URINE DIPSTICK NEGATIVE (NEGATIVE)
[2021-07-12 20:30] LABS: ALBUMIN 3.8 g/dL (3.5-5.0); ALBUMIN/GLOBULIN RATIO 1.1 (0.8-2.0); AMPHETAMINES SCREEN,URINE NEGATIVE (NEGATIVE); AMYLASE 55 U/L (25-125); ANION GAP 14.6 mmol/L (8-16); BENZODIAZEPINES SCREEN,URINE NEGATIVE (NEGATIVE); CALCIUM 8.8 mg/dL (8.4-10.2); CREATININE, SERUM 0.96 mg/dL (0.57-1.11); LIPASE 19 U/L (8-78); PHENCYCLIDINE SCREEN,URINE NEGATIVE (NEGATIVE); POTASSIUM 3.6 mmol/L (3.5-5.1); URINE UROBILINOGEN 0.2 mg/dL (0.2 - 1)
[2021-07-12 20:36] LABS: CREATINE KINASE MB 0.4 ng/mL (0-5.0)
[2021-07-12 20:41] LABS: BACTERIA,URINE FEW /HPF; EPITHELIAL CELLS,URINE FEW /LPF
[2021-07-12 21:44] VITALS: BP 127/73
== END 2021-07-12 21:45 | disposition home or self-care (01) ==
LOC: ER 19:42
DX: K29.70 Gastritis, unspecified, without bleeding (principal); R07.89 Other chest pain; R51.9 Headache, unspecified; I10 Essential (primary) hypertension; J45.909 Unspecified asthma, uncomplicated; K21.9 Gastro-esophageal reflux disease without esophagitis; F90.9 Attention-deficit hyperactivity disorder, unspecified type; Z88.6 Allergy status to analgesic agent; Z88.1 Allergy status to other antibiotic agents; Z88.8 Allergy status to other drugs, medicaments and biological substances; Z79.899 Other long term (current) drug therapy
CPT/HCPCS: 36415; 71045; 80053; 80307; 81001; 82150; 82550; 82553; 83690; 84484; 85025; 93005; 99284; C9113